=== PATIENT | male | born 1940 | race Caucasian/White ===

== ENCOUNTER 2020-09-03 11:20 | Emergency (ER) | payer MEDICARE, OTHER ==
--- NOTE | 2020-09-03 12:49 | EDM.PDOC ---
<Johnathan Tamayo - Last Filed: 09/03/20 15:09> ED HPI GENERAL MEDICAL PROBLEM - General Chief Complaint: ENT Problem Stated Complaint: BLOODY NOSE Time Seen by Provider: 09/03/20 11:45 Right Nare Pain Score (Numeric/FACES): 1 - Related Data Allergies Allergy/AdvReac Type Severity Reaction Status Date / Time No Known Allergies Allergy Verified 09/03/20 12:33 Home Meds: Home Meds Esomeprazole [NexIUM] 20 mg PO DAILY 09/03/20 [History] RABEprazole Sodium [Aciphex] 40 mg PO BID 09/03/20 [History] Sucralfate 1 gm PO DAILY 09/03/20 [History] Tamsulosin HCl [Flomax] 0.4 mg PO DAILY 09/03/20 [History] amLODIPine Besylate [Norvasc] 2.5 mg PO DAILY 09/03/20 [History] atorvaSTATin [Lipitor] 10 mg PO BEDTIME 09/03/20 [History] Departure - Departure Time of Disposition: 13:18 Disposition: Home, Self-Care 01 Clinical Impression: Epistaxis - Discharge Information Instructions: Nosebleed, Adult Referrals: PCP,None [Primary Care Provider] - Forms: ED Department Discharge Additional Instructions: If your nose starts to bleed again, please place nasal clamp and lean slightly forward with compression on nare for 10 minutes. Remove nasal clip and if bleeding continues, replace clamp for 10 more minutes. Do not blow your nose. If bleeding persists, return to ER for nasal packing. Try stopping Flonase. You can use a normal saline nasal spray if needed but recommend giving your nose a break from sprays. <Cailin Proctor - Last Filed: 09/03/20 17:25> ED HPI GENERAL MEDICAL PROBLEM - General Source of Information: Reports: Patient, Family History Limitations: Reports: No Limitations - History of Present Illness INITIAL COMMENTS - FREE TEXT/NARRATIVE: 80 year old male with history of nasal fracture x2 and nose bleeds presents with complaint of right nare epistaxis. He reports that he had a nose bleed similar a couple days ago and was seen at the [facility] where they then cauterized in two places. Pt states that he was sitting at a table with family today when it began spontaneously bleeding again. He reports that they tried holding direct pressure to stop the bleeding but were without luck. Nasal clamp placed in triage. Denies using anticoagulants. No associated symptoms. reports using Flonase daily for "a long time". Onset: Today, Sudden Onset Date: 09/03/20 Duration: Hour(s): Location: Reports: Other (right nare) Quality: Reports: Other (bleeding) Improves with: Reports: None Worsens with: Reports: None Associated Symptoms: Reports: No Other Symptoms ED ROS ENT - Review of Systems Review Of Systems: See Below Constitutional: Reports: No Symptoms. Denies: Fever, Malaise, Weakness, Decreased Appetite HEENT: Reports: Nosebleed. Denies: Nose Pain Respiratory: Denies: Shortness of Breath Cardiovascular: Denies: Chest Pain, Blood Pressure Problem Endocrine: Denies: Fatigue GI/Abdominal: Reports: No Symptoms. Denies: Abdominal Pain, Hematemesis, Vomiting : Reports: No Symptoms Musculoskeletal: Reports: No Symptoms Skin: Reports: No Symptoms. Denies: Diaphoresis, Bruising Neurological: Reports: No Symptoms. Denies: Confusion, Numbness, Weakness, Gait Disturbance Psychiatric: Reports: No Symptoms Hematologic/Lymphatic: Reports: No Symptoms Immunologic: Reports: No Symptoms ED EXAM, ENT - Physical Exam Exam: See Below Text/Narrative:: Johnathan is resting on exam chair with family at bedside. He is alert and oriented. skin is warm and dry. Respirations are regular and non labored. He has nasal clamp in place. Upon removal of nasal clamp, bloody gauze and large clot removed. Pt did not have any more bleeding after removal of nasal clamp. Exam Limited By: No Limitations General Appearance: Alert, WD/WN, No Apparent Distress Ears: Normal External Exam Nose: Nasal Discharge, Dried Blood Mouth/Throat: Normal Inspection. No: Bleeding, Throat Pain Head: Atraumatic Neck: Normal Inspection Respiratory/Chest: No Respiratory Distress. No: Respiratory Distress Cardiovascular: Normal Peripheral Pulses, Regular Rate, Rhythm GI/Abdominal: Soft, Non-Tender (Male) Exam: Deferred Rectal (Males) Exam: Deferred Back: Normal Inspection, Full Range of Motion Extremities: Normal Inspection, Normal Range of Motion, Non-Tender Neurological: Alert, Oriented, Normal Cognition. No: Confused, Disoriented Psychiatric: Normal Affect Skin: Warm, Dry. No: Diaphoretic Lymphatic: No Adenopathy Course - Vital Signs Text/Narrative:: Nasal clamp placed, no bleeding at this time. Last Recorded V/S: Last Vital Signs Temp 36.4 C 09/03/20 12:39 Pulse 77 09/03/20 12:39 Resp 16 09/03/20 12:39 BP 162/73 H 09/03/20 12:39 Pulse Ox 97 09/03/20 12:39 Departure - Departure Time of Disposition: 13:18 Condition: Good Sepsis Event Note (ED) - Focused Exam Vital Signs: Vital Signs Temp Pulse Resp BP Pulse Ox 09/03/20 12:39 36.4 C 77 16 162/73 H 97 09/03/20 12:08 36.4 C 77 16 162/73 H 97 Attestation - Student - Attestation Statement Attestation Statement: I personally performed or re-performed the physical examination and medical decision making. I have verified all student documentation or findings, including history, physical exam and/or medical decision making.
== END 2020-09-03 13:15 | disposition home or self-care (01) ==
LOC: JP.ED 11:20
DX: R04.0 Epistaxis (principal)
CPT/HCPCS: 99283